=== PATIENT | male | born 1965 | race Caucasian/White ===

== ENCOUNTER 2019-11-20 09:30 | Emergency (ER) | payer BC ==
[2019-11-20] MEDS ORDERED: ALBUTEROL SULFATE (0.083%) 2.5 MG/3 ML NEB INH ONE (09:45)
[2019-11-20] MEDS ORDERED: PREDNISONE 20 MG TAB PO ONE (09:46)
--- NOTE | 2019-11-20 09:50 | Emergency Department Record ---
History of Present Illness - General Chief complaint: Flu Like Symptoms Stated complaint: FLU LIKE SYMPTOMS Time Seen by Provider: 11/20/19 09:35 Source: Patient, Family () Mode of Arrival: Ambulatory Limitations: No limitations - History of Present Illness Initial comments: Pt to ED from home with for coughing and fever. Pt confirmed Flu A 4 days ago. Not on meds for flu. Using Tylenol for fevers at home measured at "100". Primary concern is tightness in chest and cough. Non productive. Pt is a smoker. No smoking since ill. No vomiting. Tolerating diet and fluids. No hx of asthma or wheeze. Onset/Timin -: Days(s) Location: Generalized - [place] Coma Scale Eye Response: (4) Open spontaneously Motor Response: (6) Obeys commands Verbal Response: (5) Oriented [place] Total: 15 - Related Data Previous Rx's Medication Instructions Recorded Albuterol Sulfate [Ventolin Hfa] 1 - 2 puff IH .EVERY 4-6 HOURS PRN 11/20/19 7 Days #1 inhaler Prednisone [Prednisone 20Mg] 40 mg PO DAILY #8 tab 11/20/19 Allergies Allergy/AdvReac Type Severity Reaction Status Date / Time Sulfa (Sulfonamide Allergy Severe PT UNSURE Unverified 11/20/19 09:36 Antibiotics) OF REACTION Codine Allergy Severe VOMITING Uncoded 07/12/19 18:51 Travel/Exposure Screening - Travel/Exposure Within Last 30 Days Have you traveled within the last 30 days?: No - Additonal Travel/Exposure Details Have you been exposed to anyone with a communicable illness?: No Review of Systems Constitutional: Reports: Chills, Fever, Malaise. Denies: Weakness Eyes: Denies: Eye discharge, Photophobia ENT: Denies: Congestion, Ear pain, Throat pain Respiratory: Reports: As per HPI, Cough, Dyspnea, Wheezes. Denies: Hemoptysis Cardiovascular: Denies: Arrhythmia, Chest pain, Syncope Endocrine: Reports: Fatigue. Denies: Polydipsia, Polyuria Gastrointestinal: Denies: Abdominal pain, Diarrhea, Nausea, Vomiting Genitourinary: Denies: Frequency Musculoskeletal: Denies: Back pain Skin: Denies: Rash Neurological: Denies: Headache, Tingling, Tremors Psychiatric: Denies: Anxiety Hematological/Lymphatic: Denies: Anemia Past Medical History - SOCIAL HISTORY Smoking Status: Current every day smoker Alcohol Use: None Drug Use: None - RESPIRATORY Hx Respiratory Disorders: No - CARDIOVASCULAR Hx Cardio Disorders: No - NEURO Hx Neuro Disorders: No - GI Hx GI Disorders: No - Hx Genitourinary Disorders: No - ENDOCRINE Hx Endocrine Disorders: Yes Hx Thyroid Disease: Yes - MUSCULOSKELETAL Hx Musculoskeletal Disorders: No - PSYCH Hx Psych Problems: No - HEMATOLOGY/ONCOLOGY Hx Hematology/Oncology Disorders: No Family Medical History Any Significant Family History?: No Physical Exam - General General Appearance: Alert, Oriented x3, Cooperative, Mild distress - Head Head exam: Atraumatic, Normal inspection - Eye Eye exam: Normal appearance, PERRL - ENT ENT exam: Mucous membranes moist Ear exam: Normal external inspection Nasal Exam: Normal inspection Mouth exam: Normal external inspection - Neck Neck exam: Normal inspection, Full ROM. negative: Tenderness - Respiratory Respiratory exam: Prolonged expiratory, Rhonchi, Wheezes. negative: Respiratory distress - Cardiovascular Cardiovascular Exam: Regular rate, Normal rhythm. negative: Tachycardia Peripheral Pulses: 2+: Radial (R), Radial (L) - GI/Abdominal GI/Abdominal exam: Soft, Normal bowel sounds. negative: Tenderness - Extremities Extremities exam: Normal inspection - Neurological Neurological exam: Alert, Normal gait, Oriented X3 - Psychiatric Psychiatric exam: Normal affect, Normal mood - Skin Skin exam: Normal color. negative: Rash Course Vital Signs 11/20/19 09:37 Temperature 97.4 F L Pulse Rate 76 Respiratory 18 Rate Blood Pressure 152/83 Pulse Ox 94 L - Reevaluation(s) Reevaluation #1: 11/20/19 09:50 Seen with cough. Pt with wheezing on cough. +Flu A 4 days ago. Smoker. To CXR and constance in ED. Oral prednison. Disposition Disposition: Discharge Clinical Impression: Influenza A, Reactive airway disease that is not asthma Disposition: Home, Self-Care Condition: (2) Stable Instructions: Influenza (ED), How to Use a Metered-Dose Inhaler (ED) Additional Instructions: STOP smoking Take Tylenol for fever as needed. Take Prednisone with food and use inhaler as instructed. Rest and fluids. Family Doctor in 3 days Return to the ED as needed. Prescriptions: Prednisone [Prednisone 20Mg] 40 mg PO DAILY #8 tab Albuterol Sulfate [Ventolin Hfa] 1 - 2 puff IH .EVERY 4-6 HOURS PRN 7 Days #1 inhaler PRN Reason: Difficulty In Breathing Forms: Patient Portal Access Quality - Quality Measures Quality Measures: N/A - Blood Pressure Screening Does Patient Have Any of the Following: No Blood Pressure Classification: Pre-Hypertensive BP Reading Systolic Measurement: 152 Diastolic Measurement: 83 Screening for High Blood Pressure: < Pre-Hypertensive BP, F/U Documented > [[id number]] Pre-Hypertensive Follow-up Interventions: Follow-up with rescreen every year.
--- NOTE | 2019-11-20 10:21 | RADIOLOGY REPORT ---
EXAMINATION: Two View Chest Radiographs EXAM DATE: 11/20/2019 10:04 AM TECHNIQUE: Frontal and lateral views INDICATION: cough COMPARISON: None ENCOUNTER: Not applicable FINDINGS: The cardiac and mediastinal silhouette is unremarkable. Lungs are clear. No effusion or pneumothorax. Pulmonary vasculature is normal. IMPRESSION: No acute cardiopulmonary findings. Dictated by: Toy Rice MD on 11/20/2019 10:16 AM. .
== END 2019-11-20 10:22 | disposition home or self-care (01) ==
LOC: ER 09:30
DX: J10.1 Influenza due to other identified influenza virus with other respiratory manifestations (principal); R06.2 Wheezing; F17.210 Nicotine dependence, cigarettes, uncomplicated
CPT/HCPCS: 99283 ×2; 71046; 94640; J7512; J7613